=== PATIENT | male | born 1990 | race Caucasian/White ===

== ENCOUNTER 2018-04-11 01:02 | Emergency (ER) | payer BC ==
--- NOTE | 2018-04-11 01:09 | ER Report ---
History and Physical Time Seen By MD: 01:09 HPI/ROS CHIEF COMPLAINT: Depression, suicidal ideation HISTORY OF PRESENT ILLNESS: 27-year-old male brought in by police on a voluntary basis for evaluation for depression and suicidal ideation. Patient was text in earlier with friends that he was going to hang himself. He is not serious and does not have an actual plan. He denies depression. He states he is being followed by [facility] was seen there last week. Patient denies suicidal ideation at present. Patient would like to go home. He is refusing all care. REVIEW OF SYSTEMS: Respiratory: No cough, no dyspnea. Cardiovascular: No chest pain, no palpitations. Gastrointestinal: No vomiting, no abdominal pain. Musculoskeletal: No back pain. Allergies: Coded Allergies: No Known Drug Allergies (Unverified , 04/11/18) Home Meds Reported Medications Lamotrigine (LAMICTAL) 25 Mg Tablet, 25 MG PO 04/11/18 Hydroxyzine Hcl (HYDROXYZINE HCL) 25 Mg Tablet, 25 MG PO 04/11/18 Reviewed Nurses Notes: Yes Old Medical Records Reviewed: Yes Constitutional Vital Sign - Last 24 Hours 04/11/18 04/11/18 01:08 02:15 Temp 98.5 Pulse 98 100 Resp 16 B/P (MAP) 123/83 127/84 (98) Pulse Ox 93 97 O2 Delivery Room Air Room Air Physical Exam General Appearance: The patient is alert, has no immediate need for airway protection and no current signs of toxicity. Vital signs stable, afebrile, pulse ox normal Eyes: Pupils equal and round no injection. Respiratory: Chest is non tender, lungs are clear to auscultation. Cardiac: regular rate and rhythm Gastrointestinal: Abdomen is soft and non tender, no masses, bowel sounds normal. Musculoskeletal: Neck: Neck is supple and non tender. Extremities have full range of motion and are non tender. Skin: No rashes or lesions. DIFFERENTIAL DIAGNOSIS: After history and physical exam differential diagnosis was considered for depression including functional and major depression, situational depression, medication side effect, drugs and alcohol abuse. Medical Decision Making Data Points Result Diagram: 04/11/18 0137 04/11/18 0137 Laboratory Hematology Test 04/11/18 01:37 Red Blood Count 5.97 M/uL (4.00-5.60) Mean Corpuscular Volume 77.1 fL (80.0-96.0) Mean Corpuscular Hemoglobin 25.9 pg (26.0-33.0) Mean Corpuscular Hemoglobin Concent 33.6 g/dL (32.0-36.0) Red Cell Distribution Width 18.8 % (11.5-14.5) Mean Platelet Volume 8.8 fL (7.2-11.1) Neutrophils (%) (Auto) 55.3 % (39.4-72.5) Lymphocytes (%) (Auto) 33.0 % (17.6-49.6) Monocytes (%) (Auto) 9.2 % (4.1-12.4) Eosinophils (%) (Auto) 1.4 % (0.4-6.7) Basophils (%) (Auto) 1.1 % (0.3-1.4) Nucleated RBC Relative Count (auto) 0.1 /100WBC Neutrophils # (Auto) 3.1 K/uL (2.0-7.4) Lymphocytes # (Auto) 1.9 K/uL (1.3-3.6) Monocytes # (Auto) 0.5 K/uL (0.3-1.0) Eosinophils # (Auto) 0.1 K/uL (0.0-0.5) Basophils # (Auto) 0.1 K/uL (0.0-0.1) Nucleated RBC Absolute Count (auto) 0.00 K/uL Sodium Level 142 mmol/L (137-145) Potassium Level 4.0 mmol/L (3.5-5.0) Chloride Level 103 mmol/L (98-107) Carbon Dioxide Level 24 mmol/L (22-30) Blood Urea Nitrogen 9 mg/dl (9-21) Creatinine 0.70 mg/dl (0.66-1.25) Glomerular Filtration Rate Calc > 60.0 Random Glucose 104 mg/dl (75-110) Calcium Level 8.7 mg/dl (8.4-10.2) Magnesium Level 2.3 mg/dl (1.7-2.2) Total Bilirubin 0.3 mg/dl (0.2-1.3) Aspartate Amino Transf (AST/SGOT) 29 U/L (0-35) Alanine Aminotransferase (ALT/SGPT) 21 U/L (0-56) Alkaline Phosphatase 97 U/L (0-126) Total Protein 7.5 g/dl (6.3-8.2) Albumin 4.5 g/dl (3.5-5.0) Salicylates Level < 10 mg/L Salicylate Last Dose Date unk Acetaminophen Level < 10 ug/ml Serum Alcohol 80 mg/dl Chemistry Test 04/11/18 01:37 White Blood Count 5.7 k/uL (4.5-11.0) Red Blood Count 5.97 M/uL (4.00-5.60) Hemoglobin 15.4 g/dL (14.0-18.0) Hematocrit 46.0 % (42.0-52.0) Mean Corpuscular Volume 77.1 fL (80.0-96.0) Mean Corpuscular Hemoglobin 25.9 pg (26.0-33.0) Mean Corpuscular Hemoglobin Concent 33.6 g/dL (32.0-36.0) Red Cell Distribution Width 18.8 % (11.5-14.5) Platelet Count 342 K/uL (150-450) Mean Platelet Volume 8.8 fL (7.2-11.1) Neutrophils (%) (Auto) 55.3 % (39.4-72.5) Lymphocytes (%) (Auto) 33.0 % (17.6-49.6) Monocytes (%) (Auto) 9.2 % (4.1-12.4) Eosinophils (%) (Auto) 1.4 % (0.4-6.7) Basophils (%) (Auto) 1.1 % (0.3-1.4) Nucleated RBC Relative Count (auto) 0.1 /100WBC Neutrophils # (Auto) 3.1 K/uL (2.0-7.4) Lymphocytes # (Auto) 1.9 K/uL (1.3-3.6) Monocytes # (Auto) 0.5 K/uL (0.3-1.0) Eosinophils # (Auto) 0.1 K/uL (0.0-0.5) Basophils # (Auto) 0.1 K/uL (0.0-0.1) Nucleated RBC Absolute Count (auto) 0.00 K/uL Glomerular Filtration Rate Calc > 60.0 Calcium Level 8.7 mg/dl (8.4-10.2) Magnesium Level 2.3 mg/dl (1.7-2.2) Total Bilirubin 0.3 mg/dl (0.2-1.3) Aspartate Amino Transf (AST/SGOT) 29 U/L (0-35) Alanine Aminotransferase (ALT/SGPT) 21 U/L (0-56) Alkaline Phosphatase 97 U/L (0-126) Total Protein 7.5 g/dl (6.3-8.2) Albumin 4.5 g/dl (3.5-5.0) Salicylates Level < 10 mg/L Salicylate Last Dose Date unk Acetaminophen Level < 10 ug/ml Serum Alcohol 80 mg/dl Toxicology Test 04/11/18 01:37 Salicylates Level < 10 mg/L Salicylate Last Dose Date unk Acetaminophen Level < 10 ug/ml Serum Alcohol 80 mg/dl ED Course/Re-evaluation ED Course Patient was admitted to an examination room. H&P was done. The differential diagnoses was considered. On clinical examination. Patient has a benign exam. Patient on careful examination, is not actively suicidal at this time. Patient reports that the PACS messages. He was sending earlier not an actual plan. They were more of a flippant comment. I do not think patient needs to be detained at this time. He's advised to follow-up with his counselor. He was given additional resources for help. Decision to Disposition Date: Apr 11, 2018 Decision to Disposition Time: 01:33 Depart Departure Latest Vital Signs Vital Signs Date Time Temp Pulse Resp B/P (MAP) Pulse Ox O2 Delivery O2 Flow Rate FiO2 04/11/18 02:15 100 127/84 (98) 97 Room Air 04/11/18 01:08 98.5 16 Impression: Primary Impression: Depression with suicidal ideation Condition: Improved Disposition: HOME OR SELF-CARE Patient Instructions: Depression (ED) Additional Instructions: Follow-up with mental health provider you reach your new location, [place]. PABLITO HEAD DO Apr 11, 2018 01:09
[2018-04-11] MEDS ORDERED: HYDR-4225 PO (01:14)
[2018-04-11] MEDS ORDERED: LAMO25TA64 PO (01:14)
[2018-04-11 01:51] LABS: PLATELET COUNT, AUTOMATED 342 K/uL (150-450)
[2018-04-11 02:15] VITALS: BP 127/84
== END 2018-04-11 02:20 | disposition home or self-care (01) ==
LOC: ER 01:25
DX: R45.851 Suicidal ideations (principal); F32.9 Major depressive disorder, single episode, unspecified
CPT/HCPCS: 36415; 80320; 80329; 82040; 82247; 82310; 82374; 82435; 82565; 82947; 83735; 84075; 84132; 84155; 84295; 84443; 84450; 84460; 84520; 85025; 99283

== ENCOUNTER 2019-03-28 07:20 | Emergency (ER) | payer SELFPAY ==
[~2019-03-28 07:20] MED LIST: HYDR-4225 PO; LAMO25TA64 PO
--- NOTE | 2019-03-28 07:36 | ER Report ---
History and Physical Time Seen By MD: 07:28 Hx. of Stated Complaint: PATIENT IS EMERGENCY DETATINED FROM POLICE. REPORTS MAKING BAD DECISIONS AND HIS FRIENDS BECAME WORRIED ABOUT HIM HPI/ROS CHIEF COMPLAINT: Suicidal ideation with intent HISTORY OF PRESENT ILLNESS: 28-year-old male brought in by PD for suicidal ideation. Patient last evening verified via police report made statements to friends and via text that he was going to kill himself that he wanted them to buy him a gun he was going to give way as climbing equipment and thrown himself off a liliam he wanted to he was going to kill himself this is evidently happened before he was seen here about a year or so ago for the exact same situation patient says he has his job is complaining about his life and wanted to kill himself. Patient has no physical complaints at this time. When explained to him that he was going to be emergently detained he then immediately changes story saying he didn't want to kill himself he was just upset last night intoxicated and wants to go home. He was informed that he was unable to go home that he was under fpc and he became upset at this fact this and was given a financially ruined him in cost him his job. The patient then denied having suicidal ideation after he admitted to [place] stimulated want to kill himself and this was confirmed by PD. REVIEW OF SYSTEMS: Respiratory: No cough, no dyspnea. Cardiovascular: No chest pain, no palpitations. Gastrointestinal: No vomiting, no abdominal pain. Musculoskeletal: No back pain. Remainder of the 14 system rev: Yes Allergies: Coded Allergies: No Known Drug Allergies (Unverified , 04/11/18) Home Meds Reported Medications Lamotrigine (LAMICTAL) 25 Mg Tablet, 25 MG PO 04/11/18 Hydroxyzine Hcl (HYDROXYZINE HCL) 25 Mg Tablet, 25 MG PO 04/11/18 Reviewed Nurses Notes: Yes Old Medical Records Reviewed: Yes Hx Substance Use Disorder: No Hx Alcohol Use: Yes Constitutional Vital Sign - Last 24 Hours 03/28/19 07:21 Temp 98.2 Pulse 86 Resp 16 B/P (MAP) 107/81 Pulse Ox 94 O2 Delivery Room Air Physical Exam General Appearance: The patient is alert, has no immediate need for airway protection and no current signs of toxicity. [ ] Eyes: Pupils equal and round no injection. Respiratory: Chest is non tender, lungs are clear to auscultation. Cardiac: regular rate and rhythm [ ] Gastrointestinal: Abdomen is soft and non tender, no masses, bowel sounds normal. Musculoskeletal: Neck: Neck is supple and non tender. Extremities have full range of motion and are non tender. Skin: No rashes or lesions. [ Behavioral examination patient has a somewhat flattened affect. Declarative statements of suicidal ideation with plan then recanted] DIFFERENTIAL DIAGNOSIS: After history and physical exam differential diagnosis was considered for suicidal ideation with plan and intent depressive depressive disorder Medical Decision Making Data Points Result Diagram: 03/28/19 0733 03/28/19 0733 Laboratory Hematology Test 03/28/19 07:33 03/28/19 07:39 Red Blood Count 5.76 M/uL (4.00-5.60) Mean Corpuscular Volume 91.2 fL (80.0-96.0) Mean Corpuscular Hemoglobin 31.2 pg (26.0-33.0) Mean Corpuscular Hemoglobin Concent 34.3 g/dL (32.0-36.0) Red Cell Distribution Width 15.3 % (11.5-14.5) Mean Platelet Volume 8.0 fL (7.2-11.1) Neutrophils (%) (Auto) 49.8 % (39.4-72.5) Lymphocytes (%) (Auto) 38.5 % (17.6-49.6) Monocytes (%) (Auto) 9.6 % (4.1-12.4) Eosinophils (%) (Auto) 1.5 % (0.4-6.7) Basophils (%) (Auto) 0.6 % (0.3-1.4) Nucleated RBC Relative Count (auto) 0.0 /100WBC Neutrophils # (Auto) 2.5 K/uL (2.0-7.4) Lymphocytes # (Auto) 1.9 K/uL (1.3-3.6) Monocytes # (Auto) 0.5 K/uL (0.3-1.0) Eosinophils # (Auto) 0.1 K/uL (0.0-0.5) Basophils # (Auto) 0.0 K/uL (0.0-0.1) Nucleated RBC Absolute Count (auto) 0.00 K/uL Sodium Level 146 mmol/L (137-145) Potassium Level 3.9 mmol/L (3.5-5.0) Chloride Level 104 mmol/L (98-107) Carbon Dioxide Level 27 mmol/L (22-30) Blood Urea Nitrogen 6 mg/dl (9-21) Creatinine 0.70 mg/dl (0.66-1.25) Glomerular Filtration Rate Calc > 60.0 Random Glucose 90 mg/dl (75-110) Calcium Level 9.2 mg/dl (8.4-10.2) Magnesium Level 2.6 mg/dl (1.7-2.2) Total Bilirubin 0.4 mg/dl (0.2-1.3) Aspartate Amino Transf (AST/SGOT) 43 U/L (0-35) Alanine Aminotransferase (ALT/SGPT) 42 U/L (0-56) Alkaline Phosphatase 94 U/L (0-126) Total Protein 7.8 g/dl (6.3-8.2) Albumin 4.6 g/dl (3.5-5.0) Salicylates Level < 10 mg/L Salicylate Last Dose Date unk Acetaminophen Level < 10 ug/ml Serum Alcohol 170 mg/dl Urine Color Yellow Urine Clarity Clear Urine pH 5.0 pH (4.8-9.5) Urine Specific [place] 1.023 Urine Protein Negative mg/dL (NEGATIVE) Urine Glucose (UA) Negative mg/dL (NEGATIVE) Urine Ketones Trace mg/dL (NEGATIVE) Urine Blood Negative (NEGATIVE) Urine Nitrite Negative (NEGATIVE) Urine Bilirubin Negative (NEGATIVE) Urine Urobilinogen Negative mg/dL (0.2-1.9) Urine Leukocyte Esterase Negative (NEGATIVE) Urine RBC <1 /HPF (0-2/HPF) Urine WBC 1 /HPF (0-5/HPF) Urine Squamous Epithelial Cells None /LPF (</=FEW) Urine Bacteria Negative /HPF (NONE-FEW) Urine Mucus Few /HPF (NONE-FEW) Urine Opiates Screen Negative Urine Barbiturates Screen Negative Ur Tricyclic Antidepressants Screen Negative Urine Phencyclidine Screen Negative Urine Amphetamines Screen Negative Urine Benzodiazepines Screen Positive Urine Cocaine Screen Negative Urine Cannabinoids Screen Negative Chemistry Test 03/28/19 07:33 03/28/19 07:39 White Blood Count 4.9 k/uL (4.5-11.0) Red Blood Count 5.76 M/uL (4.00-5.60) Hemoglobin 18.0 g/dL (14.0-18.0) Hematocrit 52.5 % (42.0-52.0) Mean Corpuscular Volume 91.2 fL (80.0-96.0) Mean Corpuscular Hemoglobin 31.2 pg (26.0-33.0) Mean Corpuscular Hemoglobin Concent 34.3 g/dL (32.0-36.0) Red Cell Distribution Width 15.3 % (11.5-14.5) Platelet Count 336 K/uL (150-450) Mean Platelet Volume 8.0 fL (7.2-11.1) Neutrophils (%) (Auto) 49.8 % (39.4-72.5) Lymphocytes (%) (Auto) 38.5 % (17.6-49.6) Monocytes (%) (Auto) 9.6 % (4.1-12.4) Eosinophils (%) (Auto) 1.5 % (0.4-6.7) Basophils (%) (Auto) 0.6 % (0.3-1.4) Nucleated RBC Relative Count (auto) 0.0 /100WBC Neutrophils # (Auto) 2.5 K/uL (2.0-7.4) Lymphocytes # (Auto) 1.9 K/uL (1.3-3.6) Monocytes # (Auto) 0.5 K/uL (0.3-1.0) Eosinophils # (Auto) 0.1 K/uL (0.0-0.5) Basophils # (Auto) 0.0 K/uL (0.0-0.1) Nucleated RBC Absolute Count (auto) 0.00 K/uL Glomerular Filtration Rate Calc > 60.0 Calcium Level 9.2 mg/dl (8.4-10.2) Magnesium Level 2.6 mg/dl (1.7-2.2) Total Bilirubin 0.4 mg/dl (0.2-1.3) Aspartate Amino Transf (AST/SGOT) 43 U/L (0-35) Alanine Aminotransferase (ALT/SGPT) 42 U/L (0-56) Alkaline Phosphatase 94 U/L (0-126) Total Protein 7.8 g/dl (6.3-8.2) Albumin 4.6 g/dl (3.5-5.0) Salicylates Level < 10 mg/L Salicylate Last Dose Date unk Acetaminophen Level < 10 ug/ml Serum Alcohol 170 mg/dl Urine Color Yellow Urine Clarity Clear Urine pH 5.0 pH (4.8-9.5) Urine Specific [place] 1.023 Urine Protein Negative mg/dL (NEGATIVE) Urine Glucose (UA) Negative mg/dL (NEGATIVE) Urine Ketones Trace mg/dL (NEGATIVE) Urine Blood Negative (NEGATIVE) Urine Nitrite Negative (NEGATIVE) Urine Bilirubin Negative (NEGATIVE) Urine Urobilinogen Negative mg/dL (0.2-1.9) Urine Leukocyte Esterase Negative (NEGATIVE) Urine RBC <1 /HPF (0-2/HPF) Urine WBC 1 /HPF (0-5/HPF) Urine Squamous Epithelial Cells None /LPF (</=FEW) Urine Bacteria Negative /HPF (NONE-FEW) Urine Mucus Few /HPF (NONE-FEW) Urine Opiates Screen Negative Urine Barbiturates Screen Negative Ur Tricyclic Antidepressants Screen Negative Urine Phencyclidine Screen Negative Urine Amphetamines Screen Negative Urine Benzodiazepines Screen Positive Urine Cocaine Screen Negative Urine Cannabinoids Screen Negative Toxicology Test 03/28/19 07:33 03/28/19 07:39 Salicylates Level < 10 mg/L Salicylate Last Dose Date unk Acetaminophen Level < 10 ug/ml Serum Alcohol 170 mg/dl Urine Opiates Screen Negative Urine Barbiturates Screen Negative Ur Tricyclic Antidepressants Screen Negative Urine Phencyclidine Screen Negative Urine Amphetamines Screen Negative Urine Benzodiazepines Screen Positive Urine Cocaine Screen Negative Urine Cannabinoids Screen Negative Urinalysis Test 03/28/19 07:39 Urine Color Yellow Urine Clarity Clear Urine pH 5.0 pH (4.8-9.5) Urine Specific [place] 1.023 Urine Protein Negative mg/dL (NEGATIVE) Urine Glucose (UA) Negative mg/dL (NEGATIVE) Urine Ketones Trace mg/dL (NEGATIVE) Urine Blood Negative (NEGATIVE) Urine Nitrite Negative (NEGATIVE) Urine Bilirubin Negative (NEGATIVE) Urine Urobilinogen Negative mg/dL (0.2-1.9) Urine Leukocyte Esterase Negative (NEGATIVE) Urine RBC <1 /HPF (0-2/HPF) Urine WBC 1 /HPF (0-5/HPF) Urine Squamous Epithelial Cells None /LPF (</=FEW) Urine Bacteria Negative /HPF (NONE-FEW) Urine Mucus Few /HPF (NONE-FEW) ED Course/Re-evaluation ED Course Medical decision-making a 28 year old male made suicidal comments and plan and intent to friends and family this was identified by PD brought him here for emergency fpc which she was detained entitled potentially some pelvic emergency department patient will be sent to the behavioral health unit Decision to Disposition Date: Mar 28, 2019 Decision to Disposition Time: 08:25 Depart Departure Latest Vital Signs Vital Signs Date Time Temp Pulse Resp B/P (MAP) Pulse Ox O2 Delivery O2 Flow Rate FiO2 03/28/19 07:21 98.2 86 16 107/81 94 Room Air Impression: Primary Impression: Depression with suicidal ideation Condition: Stable Disposition: XFER TO [facility] ER - Title 25 MHE Evaluation Title 25 Evaluation Patient Detained By: Physician, Law Enforcement Referral Source: police Date Patient Detained: Mar 28, 2019 Time Patient Detained: 07:31 Date Mcc Expires: Mar 30, 2019 Time Mcc Expires: 07:31 Legal Status: Police Hold: Yes Legal Status: Residence: [facility] Resident Assessment Data Provided By: Patient, Law Enforcement HPI/ROS: 28-year-old male brought here by PD for emergency fpc for suicidal ideation with plan and intent reportedly sent text messages think medications to friends that he was going to kill himself [place] by recurrence week she himself 1 to give away his climbing gears (himself off a liliam and wanted to end his life Admit due to SI or Attempt: Yes Suicide Plan: No Plan Current Suicide Plan Suicidal plan either through firearm or through dry himself off a elevated liliam Alcohol or Drugs Involved: Yes Current Intoxication Info: Claims he drank last evening Is Patient Info Reliable: Yes Is Collateral Info Reliable: Yes Current Home Psych Meds: None Mental Status Exam General Appearance: Casual Speech: Clear Mood: Dysthmic/Depressed Affect: Full and Appropriate, Flat Thought Process: Loose Associations Thought Content: Suicidal Ideation Sensorium: Clear Cognition: Alert & Oriented-Person, Alert & Oriented-Place, Alert & Oriented- Time, [id number] Memory: Immediate Insight Judgment: Intact, Poor Sleep: Normal Hallucinations: Denies Delusions: Denies Current Risk & History Current Dangerous Risk Assessm: Current Suicide Ideation, Agitation this Encounter Past Dangerous Risk Assessm: Other Previous Suicide Attempt: No Previous Attempt Previous Psychiatric Illness: Yes Previous Psychiatric Treatment: Yes Risk Assessment & Disposition Evaluated Risk Assessment: High Impression: Primary Impression: Depression with suicidal ideation Meets Mental Illness Req.: Yes Meets Dangerousness Req.: Yes Emergency Mcc to be: Upheld Date of Decision: Mar 28, 2019 Time of Decision: 07:34 Patient is Medically Stable at: Yes Disposition: ZARA TAFOYA MD Mar 28, 2019 07:36
[2019-03-28 07:46] LABS: PLATELET COUNT, AUTOMATED 336 K/uL (150-450)
[2019-03-28 08:42] VITALS: BP 108/82
[2019-03-28] MEDS ORDERED: LAMO150T36 PO (12:08)
[2019-03-29] MEDS ORDERED: TRAZ150T8 PO (11:22)
[2019-03-29] MEDS ORDERED: MULT-1379 PO (11:24)
== END 2019-03-28 08:45 ==
LOC: ER 07:22
DX: F32.9 Major depressive disorder, single episode, unspecified (principal); R45.851 Suicidal ideations
CPT/HCPCS: 36415; 80305; 80320; 80329; 81001; 82040; 82247; 82310; 82374; 82435; 82565; 82947; 83735; 84075; 84132; 84155; 84295; 84443; 84450; 84460; 84520; 85025; 99284

== ENCOUNTER 2019-03-28 08:36 | Inpatient (IN) | payer SELFPAY ==
[~2019-03-28] VITALS: Ht 170.2 cm; Wt 61.2 kg
[2019-03-28 08:50] VITALS: BP 118/83
[2019-03-28] MEDS: MULTIVITAMINS TAB PO SCH (09:00)
[2019-03-28] MEDS ORDERED: MAG HYD/AL HYD/SIMETH 30ML UDC PO PRN (09:00)
[2019-03-28] MEDS: lamoTRIgine 100 MG TAB PO SCH (11:45)
[2019-03-28] MEDS ORDERED: LAMO150T36 PO (12:08)
[2019-03-28] MEDS ORDERED: traZODone HCL 50 MG TAB PO SCH (21:00)
[2019-03-28 21:49] VITALS: BP 112/64
[2019-03-29 06:03] VITALS: BP 104/65
[2019-03-29] MEDS: lamoTRIgine 100 MG TAB PO SCH (08:10)
[2019-03-29] MEDS: MULTIVITAMINS TAB PO SCH (08:10)
[2019-03-29] MEDS ORDERED: TRAZ150T8 PO (11:22)
[2019-03-29] MEDS ORDERED: MULT-1379 PO (11:24)
--- NOTE | 2019-03-29 15:01 | SCHAAF H&P ---
DATE OF ADMISSION: March 28, 2019 ATTENDING PHYSICIAN Pedro Escoto MD Patient was seen in the a.m. of March 28, 2019, at approximately 1000 hours for note concerning this dictation. PRESENTING PROBLEM/CHIEF COMPLAINT Patient emergency detained after voicing suicidal ideation. Patient reporting, "I drank too much last night," upon interview at the [facility]al [facility]. HISTORY OF PRESENT ILLNESS This is a very pleasant 28-year-old male who overall appears to be an accurate historian. Patient states he drinks alcohol most days of the week, usually around three beers a night. Patient reported drinking up to 10 beers prior to admission. Patient reports he has been stressed out about his future and problems in social situations with friends recently. Patient does report he has some good people that he works with. Patient reports some social anxiety and over thinking in social situations, likely having some avoidant-type personality traits. When asked about depressive symptoms, patient reports his appetite has been okay. His energy is variable. Concentration is okay. He continues to have interest in outdoor activities. His sleep is variable at times, and his mood currently has improved to a 4/10 with 1 being bad. Patient is adamantly denying suicidal thoughts. Patient reports some cyclic-type mood in the past, and he reports that Lamictal, he believes, is helpful. Notably, this was prescribed at [facility] where patient has been following up for some time. Patient also given low-dose Valium as well. Patient does not appear to be abusing it. Patient has had no history of psychosis. Panic attacks sometimes out of the blue, and these need further evaluation before panic disorder can be diagnosed. Patient has no PTSD symptoms, phobias. No OCD symptoms. Patient has been cutting on himself. He reports this started around age 24 or 25 and recently has engaged in some very light superficial cutting of extremities. He reports this is stress relief. MENTAL HEALTH HISTORY Patient has never been an inpatient in a [facility]. Again, he has been following [facility] at [facility]. Patient reports he would be open to having a therapist as well. Patient currently on Lamictal at 100 mg q.a.m. In the past, he has been on higher doses and felt like this was helpful. Patient reported one history in his past where he thought about suicide strongly and had bought a firearm. He did not seek any inpatient treatment at that time. FAMILY PSYCHIATRIC HISTORY Patient reports some drinking. Grandfather believed to be on the dad's side suffered from alcoholism, and he had a cousin who took his life. PAST MEDICAL HISTORY Patient reports some mild asthma symptoms at times in his life and mostly outgrown. Other than that, patient reports overall good health with no known drug allergies. SOCIAL HISTORY Patient born in [place], raised there. Parents were at time of his . They remain together. Patient had two brothers. He is a high school graduate. Obtained a bachelor of science degree in [employer]. Patient has never been in the . Not . Has no children. Not engaged in a relationship with a significant other at this point, but states he would like to and considers himself heterosexual. 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 He would eventually like to get into more of a [employer] employment. LEGAL HISTORY Patient has DUI times one. SUBSTANCE ABUSE HISTORY Chews tobacco occasionally. Alcohol appears to be a moderate problem in his life. PHYSICAL EXAMINATION Please see emergency room note. Notable for: GENERAL: A 28-year-old male, cooperative with admission process. VITAL SIGNS: At time of admission, temperature 98.2, pulse 86, respiratory rate 16, blood pressure 107/81, and pulse oximetry 94% on room air. LABORATORY DATA CBC overall unremarkable. Chemistry panel notable for AST with slight elevation at 43. Magnesium slightly elevated at 2.6. TSH 1.97, in normal range. Urinalysis unremarkable. Toxicology screen positive for benzodiazepines. Patient is prescribed Valium low dose and serum alcohol level 170 at time of admission. MENTAL STATUS EXAMINATION GENERAL APPEARANCE, BEHAVIOR, AND ATTITUDE: This is a tearful, but pleasant 28-year-old male at time of admission. Patient appears to be overall an accurate historian. Patient tearful when talking about childhood events, which he does not want to discuss, which he reports have somewhat alienated him from his family. SPEECH: Largely within normal limits. Regular rate, rhythm, volume, and tone. MOOD: Improving. AFFECT: Constricted at times and mood congruent overall. THOUGHT PROCESSES: Appeared goal-directed, logical, patient thinking and making plans about his future. No loose associations or flight of ideas. THOUGHT CONTENT: Free of auditory or visual hallucinations, ideas of reference, thought broadcasting, delusions, obsessions, compulsions. Patient stating he would not take his own life. Denying homicidal ideation. SENSORIUM: Clear. COGNITION: Alert and oriented to person, place, time, and situation. MEMORY: Immediate, recent, and remote estimated intact. INTELLIGENCE: Average based on interview. INSIGHT AND JUDGMENT: Considered limited at time of admission. Patient having ongoing stressors combined with alcohol and benzodiazepine use. ASSESSMENT This is a very pleasant and honest-appearing 28-year-old male, likely has some underlying anxiety component and likely an element of substance-induced anxiety and depression. Patient is being treated for what appears to be potentially a cyclothymic condition with Lamictal, which he said had been helpful in the past. Patient likely having some cluster C as well as mild cluster B traits regarding his personality style. Will continue to engage patient in therapy and will monitor if any alcohol withdrawal is present and will work this patient up in an outpatient setting upon discharge. DIAGNOSES 1. Alcohol intoxication. 2. Alcohol use disorder, moderate. 3. Substance-induced anxiety and depression. 4. Rule out cyclothymia. 5. Cluster C and mild cluster B traits. PLAN 1. Admit to the unit. 2. Necessary precautions will be implemented. 3. Patient will participate in individual and group therapy. 4. Medications will be administered and titrated accordingly. 5. Collateral information to be obtained as necessary. 6. Estimated length of stay two to three days. MTDD
--- NOTE | 2019-04-01 13:12 | SCHAAF DISCHARGE ---
DATE OF ADMISSION: March 28, 2019 DATE OF DISCHARGE: March 29, 2019 ATTENDING PHYSICIAN Pedro Esctoo MD The patient was seen on the a.m. of March 29, 2019 at approximately 0840 hours for note concerning this dictation. FINAL DIAGNOSES 1. Alcohol use disorder, [id number]. 2. Anxiety disorder, unspecified, rule out cyclothymia. 3. Cluster C traits. 4. Substance, particularly alcohol induced mood disorder. REASON FOR ADMISSION This is a very polite 28-year-old male who presented as a very honest and accurate historian overall. The patient appeared to be suffering mostly from decompensating mood in the presence of excessive alcohol use. The patient identifying some social stressors as well. Please see H and P for full details. The patient again interacted appropriately throughout his stay on the unit. Alcohol withdrawal was not clinically relevant. The patient worked closely with therapist to insure an early discharge and get back to work. The patient demonstrating no parasuicidal behaviors on the unit. Appetite and sleep appeared good. Lamictal was increased to 150 mg which patient had said been helpful in the past. The patient was warned not to use Valium previously prescribed by outpatient provider. The patient indicated a desire to stop alcohol use. The patient also responded to trazodone low dose and was given a script of 50 to 150 mg p.o. q. nightly at time of discharge. PHYSICAL EXAMINATION Please see emergency room note. Notable for cooperative 28-year-old male at the time of admission. The patient had been placed under an emergency detainment from police after his friends were worried about him and contacted them. Vital signs at the time of admission: Temperature 98.2, pulse 86, respiratory rate 16, blood pressure 107/81 and pulse oximetry 94% on room air. Vital signs at the time of discharge from [facility]: Temperature 98.1, pulse 61, respiratory rate 15, blood pressure 104/65 and pulse oximetry 96% on room air. LABORATORY DATA CBC on admission overall unremarkable. Chemistry panel notable for mild elevation in AST of 43, otherwise unremarkable. TSH 1.97 normal range. Urinalysis unremarkable and toxicology screen positive for benzodiazepines. The patient stated he was prescribed low-dose Valium by outpatient provider and negative for other drugs of abuse. Serum alcohol 170 upon admission. MENTAL STATUS EXAMINATION GENERAL APPEARANCE, BEHAVIOR AND ATTITUDE: This is a very pleasant 28-year-old male. Well-groomed, making good eye contact. Interacting appropriately with this provider and other treatment team staff. The patient seemingly a very accurate and honest historian. Agreed to follow up treatment. The patient agreed to take medications as prescribed and abstain from alcohol. No bizarre mannerisms or tics. SPEECH: Within normal limits. Regular rate, rhythm, volume and tone. MOOD: Described as good. AFFECT: Full and bright. THOUGHT PROCESSES: Logical and goal-directed, no loose associations or flight of ideas. THOUGHT CONTENT: Free of auditory or visual hallucinations, ideas of reference, thought broadcastings, delusions, obsessions or compulsions. The patient is adamantly denying suicidal or homicidal ideation and insured that he would contact hospital or this provider if any symptoms return. SENSORIUM: Clear. COGNITION: Alert and oriented to person, place, time and situation. MEMORY: Immediate, recent and remote was estimated intact. INTELLIGENCE: Average, based on interview. INSIGHT AND JUDGMENT: Considered grossly intact and appropriate for outpatient care in the absence of alcohol or other drug use. RESULTS OF TESTING Imaging: None. Laboratory data: See above. Psychological testing: Not done. CONSULTATIONS None. TREATMENT Patient received medications, participated in individual and group therapy. HOSPITAL COURSE The patient indicated a desire to discharge the unit as soon as possible stating that his symptoms of suicidal ideation had resolved and patient wanted to get back to work. The patient had long-term goals, participated well in discussions with this provider and therapist. Lamictal was increased to 150 mg q. a.m. for potential underlying mood disorder and alcohol withdrawal again was considered not clinically relevant. CONDITION OF PATIENT ON DISCHARGE Stable. Considered a minimal risk to himself or others in the absence of alcohol or drug use. DISPOSITION The patient was discharged to home. He would follow up as scheduled with medication management and particularly with therapist. The patient was given a script for Lamictal 150 mg p.o. q. a.m., trazodone 50 to 150 mg p.o. q. nightly p.r.n. insomnia. The patient agreed to disposing of Valium given by outpatient provider and patient agreed to abstain from all alcohol and other illicit substances. The Crisis Line was given should symptoms return. The risks, benefits and alternatives of the above discharge plan were discussed. Informed consent was given to proceed with the above discharge plan by this competent patient. BOGDAN
== END 2019-03-29 12:30 | disposition home or self-care (01) | DRG 897 ==
LOC: BHS 08:36
PROVIDERS: ADMIT Psychiatry & Neurology Psychiatry; ATTEND Psychiatry & Neurology Psychiatry
DX: F10.24 Alcohol dependence with alcohol-induced mood disorder (principal); R45.851 Suicidal ideations; F41.9 Anxiety disorder, unspecified; F34.0 Cyclothymic disorder; Z91.5 Personal history of self-harm; Z81.1 Family history of alcohol abuse and dependence; Z81.8 Family history of other mental and behavioral disorders

== ENCOUNTER 2019-04-01 01:44 | Observation (INO) | payer OTHER ==
[~2019-04-01] VITALS: Ht 172.7 cm; Wt 67.8 kg
[2019-04-01] VITALS (30 sets, daily range): BP systolic 88–119; BP diastolic 45–80
[~2019-04-01 01:44] MED LIST changes: +LAMO150T36 PO; +MULT-1379 PO; +TRAZ150T8 PO
[2019-04-01] MEDS ORDERED: NS(*) 0.9% 1000 ML BAG 1,000 ML IV ONE ×6 (01:49→05:10)
[2019-04-01 01:59] LABS: PLATELET COUNT, AUTOMATED 319 K/uL (150-450)
--- NOTE | 2019-04-01 01:59 | ER Report ---
History and Physical Time Seen By MD: 01:47 HPI/ROS CHIEF COMPLAINT: Overdose, alcohol intoxication HISTORY OF PRESENT ILLNESS: 28-year-old male brought in by EMS after being encountered by police. Patient appears grossly intoxicated. He admits to taking several pills. He has access to Valium 5 mg, lamotrigine, trazodone, hydrocodone. Patient had a smorgasbord of pills spread out on the counter. His unclear what he's taken. He is hypotensive on arrival. EMS established a peripheral IV. Patient responds to painful stimuli. He wakes up and answers questions appropriately with stimulation. He is quite somnolent. Patient's history is significant for recent emergency fpc and admission to [facility] on 03/28/19. He was discharged on March 29 from [facility]. REVIEW OF SYSTEMS: Respiratory: No cough, no dyspnea. Cardiovascular: No chest pain, no palpitations. Gastrointestinal: No vomiting, no abdominal pain. Musculoskeletal: No back pain. Allergies: Coded Allergies: No Known Drug Allergies (Unverified , 04/11/18) Home Meds Reported Medications Trazodone Hcl (TRAZODONE HCL) 150 Mg Tablet, 50-150 MG PO QHS PRN for INSOMNIA 04/01/19 Multivits,Th W-Fe,Other Min (THERA-M) 1 Each Tablet, 1 EACH PO QDAY 03/29/19 Lamotrigine (LAMOTRIGINE) 150 Mg Tablet, 150 MG PO QAM 03/28/19 Discontinued Reported Medications Trazodone Hcl (TRAZODONE HCL) 150 Mg Tablet, 50-150 MG PO QHS TAKE 50 - 150 MG (1/3 TO ONE) TABLET NEEDED FOR INSOMNIA ABOUT AN HOUR BEFORE YOU GO TO SLEEP. 03/29/19 Lamotrigine (LAMICTAL) 25 Mg Tablet, 25 MG PO 04/11/18 Past Medical/Surgical History Depression with a history of suicidal ideation Hx Smoking: No Smoking Status: Never Smoker Exposure to Second Hand Smoke?: No Hx Substance Use Disorder: No Hx Alcohol Use: Yes Constitutional Vital Sign - Last 24 Hours 04/01/19 04/01/19 04/01/19 04/01/19 01:44 01:46 01:55 02:00 Temp 98.7 Pulse ??? 59 Resp 20 B/P (MAP) 83/50 (61) 83/57 87/55 (66) Pulse Ox 90 O2 Delivery Room Air 04/01/19 04/01/19 04/01/19 04/01/19 02:04 02:10 02:20 02:30 B/P (MAP) 88/58 (68) 94/58 (70) 89/61 (70) 90/60 (70) 04/01/19 04/01/19 04/01/19 04/01/19 02:40 02:44 02:50 03:00 Pulse 82 64 Resp 12 12 B/P (MAP) 87/58 (68) 90/58 (69) 89/62 (71) Pulse Ox 92 93 04/01/19 04/01/19 04/01/19 04/01/19 03:05 03:10 03:20 03:30 Pulse 66 Resp 16 B/P (MAP) 81/51 (61) 91/76 (81) 87/59 (68) Pulse Ox 93 04/01/19 04/01/19 04/01/19 04/01/19 03:35 03:40 03:50 03:55 Pulse 65 66 Resp 22 12 B/P (MAP) 96/67 (77) 96/63 (74) Pulse Ox 93 92 04/01/19 04/01/19 04/01/19 04/01/19 04:00 04:06 04:10 04:15 Pulse 65 Resp 12 B/P (MAP) 86/56 (66) 98/62 (74) 93/60 (71) Pulse Ox 92 04/01/19 04/01/19 04/01/19 04/01/19 04:20 04:25 04:30 04:40 Pulse 61 65 ??? Resp 9 14 11 B/P (MAP) 87/52 (64) 85/52 (63) 74/49 (57) Pulse Ox 92 89 89 04/01/19 04/01/19 04/01/19 04/01/19 04:44 04:45 04:50 04:55 Pulse 80 61 70 Resp 12 15 12 B/P (MAP) 84/41 (55) 78/37 (51) 81/36 (51) Pulse Ox 89 98 89 04/01/19 04/01/19 04/01/19 04/01/19 05:00 05:05 05:10 05:15 Pulse 64 69 61 69 Resp 9 22 18 11 B/P (MAP) 88/42 (57) 84/56 (65) 84/49 (61) 90/48 (62) Pulse Ox 93 92 91 94 04/01/19 05:20 Pulse 67 Resp 18 B/P (MAP) 101/50 (67) Pulse Ox 95 Physical Exam Hypotension, bradycardic at 53 bpm. Pulse ox and respiratory rate are normal. General Appearance: The patient is alert, has no immediate need for airway protection and no current signs of toxicity. Slightly pale appearing, but weren't oriented 3, somnolent HEENT: Pupils equal and round no injection. TMs normal, oropharynx without dental trauma or pill fragments Respiratory: Chest is non tender, lungs are clear to auscultation. Cardiac: regular rate and rhythm Gastrointestinal: Abdomen is soft and non tender, no masses, bowel sounds normal. Musculoskeletal: Neck: Neck is supple and non tender. Extremities have full range of motion and are non tender. Skin: No rashes or lesions. DIFFERENTIAL DIAGNOSIS: After history and physical exam differential diagnosis was considered for depression including functional and major depression, situational depression, medication side effect, suicidal attempt, polypharmacy overdose, suicidal gesture drugs and alcohol abuse. Medical Decision Making Data Points Result Diagram: 04/01/19 0142 04/01/19 1227 Laboratory Hematology Test 04/01/19 01:42 04/01/19 03:16 Red Blood Count 5.45 M/uL (4.00-5.60) Mean Corpuscular Volume 92.4 fL (80.0-96.0) Mean Corpuscular Hemoglobin 31.8 pg (26.0-33.0) Mean Corpuscular Hemoglobin Concent 34.4 g/dL (32.0-36.0) Red Cell Distribution Width 15.2 % (11.5-14.5) Mean Platelet Volume 8.5 fL (7.2-11.1) Neutrophils (%) (Auto) 50.1 % (39.4-72.5) Lymphocytes (%) (Auto) 37.6 % (17.6-49.6) Monocytes (%) (Auto) 9.4 % (4.1-12.4) Eosinophils (%) (Auto) 1.4 % (0.4-6.7) Basophils (%) (Auto) 1.5 % (0.3-1.4) Nucleated RBC Relative Count (auto) 0.2 /100WBC Neutrophils # (Auto) 2.5 K/uL (2.0-7.4) Lymphocytes # (Auto) 1.9 K/uL (1.3-3.6) Monocytes # (Auto) 0.5 K/uL (0.3-1.0) Eosinophils # (Auto) 0.1 K/uL (0.0-0.5) Basophils # (Auto) 0.1 K/uL (0.0-0.1) Nucleated RBC Absolute Count (auto) 0.01 K/uL Magnesium Level 2.6 mg/dl (1.7-2.2) Thyroid Stimulating Hormone (TSH) 1.02 uIU/ml (0.46-4.68) Salicylates Level < 10 mg/L Salicylate Last Dose Date unk Serum Alcohol 221 mg/dl Urine Color Yellow Urine Clarity Clear Urine pH 6.0 pH (4.8-9.5) Urine Specific [place] 1.008 Urine Protein Negative mg/dL (NEGATIVE) Urine Glucose (UA) Negative mg/dL (NEGATIVE) Urine Ketones Negative mg/dL (NEGATIVE) Urine Blood Negative (NEGATIVE) Urine Nitrite Negative (NEGATIVE) Urine Bilirubin Negative (NEGATIVE) Urine Urobilinogen Negative mg/dL (0.2-1.9) Urine Leukocyte Esterase Negative (NEGATIVE) Urine RBC <1 /HPF (0-2/HPF) Urine WBC 1 /HPF (0-5/HPF) Urine Squamous Epithelial Cells Few /LPF (</=FEW) Urine Bacteria Negative /HPF (NONE-FEW) Urine Hyaline Casts Few /LPF (NONE-FEW) Urine Mucus Few /HPF (NONE-FEW) Urine Opiates Screen Negative Urine Barbiturates Screen Negative Ur Tricyclic Antidepressants Screen Negative Urine Phencyclidine Screen Negative Urine Amphetamines Screen Positive Urine Benzodiazepines Screen Positive Urine Cocaine Screen Negative Urine Cannabinoids Screen Negative Chemistry Test 04/01/19 01:42 04/01/19 03:16 White Blood Count 5.1 k/uL (4.5-11.0) Red Blood Count 5.45 M/uL (4.00-5.60) Hemoglobin 17.3 g/dL (14.0-18.0) Hematocrit 50.3 % (42.0-52.0) Mean Corpuscular Volume 92.4 fL (80.0-96.0) Mean Corpuscular Hemoglobin 31.8 pg (26.0-33.0) Mean Corpuscular Hemoglobin Concent 34.4 g/dL (32.0-36.0) Red Cell Distribution Width 15.2 % (11.5-14.5) Platelet Count 319 K/uL (150-450) Mean Platelet Volume 8.5 fL (7.2-11.1) Neutrophils (%) (Auto) 50.1 % (39.4-72.5) Lymphocytes (%) (Auto) 37.6 % (17.6-49.6) Monocytes (%) (Auto) 9.4 % (4.1-12.4) Eosinophils (%) (Auto) 1.4 % (0.4-6.7) Basophils (%) (Auto) 1.5 % (0.3-1.4) Nucleated RBC Relative Count (auto) 0.2 /100WBC Neutrophils # (Auto) 2.5 K/uL (2.0-7.4) Lymphocytes # (Auto) 1.9 K/uL (1.3-3.6) Monocytes # (Auto) 0.5 K/uL (0.3-1.0) Eosinophils # (Auto) 0.1 K/uL (0.0-0.5) Basophils # (Auto) 0.1 K/uL (0.0-0.1) Nucleated RBC Absolute Count (auto) 0.01 K/uL Magnesium Level 2.6 mg/dl (1.7-2.2) Thyroid Stimulating Hormone (TSH) 1.02 uIU/ml (0.46-4.68) Salicylates Level < 10 mg/L Salicylate Last Dose Date unk Serum Alcohol 221 mg/dl Urine Color Yellow Urine Clarity Clear Urine pH 6.0 pH (4.8-9.5) Urine Specific [place] 1.008 Urine Protein Negative mg/dL (NEGATIVE) Urine Glucose (UA) Negative mg/dL (NEGATIVE) Urine Ketones Negative mg/dL (NEGATIVE) Urine Blood Negative (NEGATIVE) Urine Nitrite Negative (NEGATIVE) Urine Bilirubin Negative (NEGATIVE) Urine Urobilinogen Negative mg/dL (0.2-1.9) Urine Leukocyte Esterase Negative (NEGATIVE) Urine RBC <1 /HPF (0-2/HPF) Urine WBC 1 /HPF (0-5/HPF) Urine Squamous Epithelial Cells Few /LPF (</=FEW) Urine Bacteria Negative /HPF (NONE-FEW) Urine Hyaline Casts Few /LPF (NONE-FEW) Urine Mucus Few /HPF (NONE-FEW) Urine Opiates Screen Negative Urine Barbiturates Screen Negative Ur Tricyclic Antidepressants Screen Negative Urine Phencyclidine Screen Negative Urine Amphetamines Screen Positive Urine Benzodiazepines Screen Positive Urine Cocaine Screen Negative Urine Cannabinoids Screen Negative Toxicology Test 04/01/19 01:42 04/01/19 03:16 Salicylates Level < 10 mg/L Salicylate Last Dose Date unk Serum Alcohol 221 mg/dl Urine Opiates Screen Negative Urine Barbiturates Screen Negative Ur Tricyclic Antidepressants Screen Negative Urine Phencyclidine Screen Negative Urine Amphetamines Screen Positive Urine Benzodiazepines Screen Positive Urine Cocaine Screen Negative Urine Cannabinoids Screen Negative Urinalysis Test 04/01/19 03:16 Urine Color Yellow Urine Clarity Clear Urine pH 6.0 pH (4.8-9.5) Urine Specific [place] 1.008 Urine Protein Negative mg/dL (NEGATIVE) Urine Glucose (UA) Negative mg/dL (NEGATIVE) Urine Ketones Negative mg/dL (NEGATIVE) Urine Blood Negative (NEGATIVE) Urine Nitrite Negative (NEGATIVE) Urine Bilirubin Negative (NEGATIVE) Urine Urobilinogen Negative mg/dL (0.2-1.9) Urine Leukocyte Esterase Negative (NEGATIVE) Urine RBC <1 /HPF (0-2/HPF) Urine WBC 1 /HPF (0-5/HPF) Urine Squamous Epithelial Cells Few /LPF (</=FEW) Urine Bacteria Negative /HPF (NONE-FEW) Urine Hyaline Casts Few /LPF (NONE-FEW) Urine Mucus Few /HPF (NONE-FEW) EKG/Imaging EKG Interpretation 12 lead EK 152 Rhythm: Sinus bradycardia, rate 53 bpm [place]: normal QRS: normal, no evidence of QT prolongation, corrected QT [address] segments: Nonspecific T wave abnormality, gross T-wave flattening diffusely ED Course/Re-evaluation Clinical Indication for ER IV: Hydration, IV Access ED Course Patient was admitted to an examination room. H&P was done. The differential diagnoses was considered. On clinical examination. Patient is very somnolent. He is hypotensive. Patient consumed alcohol and numerous pills. He admits to multiple Valium 5 mg. and hydrocodone. Patient had 2 peripheral IVs established. Aggressive saline hydration was initiated for his hypotension. Supportive therapy was administered. Patient had his airway protected and did not need to be intubated. He was placed on emergency fpc by police officers. Poison center was contacted. To assist with intermittent of his polypharmacy overdose. Patient alcohol ingestion and multiple depressants. Patient's only significant finding is hypotension. He is protecting his airway. Aggressive fluid resuscitation was initiated to maintain his pressure. Patient doesn't respond to aggressive fluid resuscitation Romazicon and Narcan may be administered. Patient's diagnostic studies returned with a blood alcohol of 221. Tylenol and salicylate are unremarkable. 04/01/2019 5:05:48 am case discussed with Dr. Salima Mccarthy hospitalist on- call, who accepts the patient for admission to ICU for monitoring of his overdose and tension. Decision to Disposition Date: Apr 01, 2019 Decision to Disposition Time: 02:25 Critical Care Time I spent a total of 90 minutes of critical care time in obtaining history, performing a physical exam, bedside monitoring of interventions, collecting and interpreting tests and discussion with consultants but not including time spent performing procedures. Date of Report: Apr 01, 2019 Examiner: Dr. Pablito Head Patient Detained By: Law Enforcement Date Patient Detained: Apr 01, 2019 Time Patient Detained: 01:35 Date [facility]ci Expires: Apr 04, 2019 Time Fci Expires: 01:35 Legal Status: Police Hold: No Legal Status: Relationship: Single Legal Status: Residence: [facility] Resident Assessment Data Provided By: Patient, Other Source Chief Complaint: Polypharmacy overdose, alcohol intoxication HPI/ROS: 28-year-old male who was expressing suicidal ideation. Patient asked his friends to purchase of firearms of the kid patient self off. 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 He was expressing climbing up and throwing himself off. Tonight he drank alcohol and took a polypharmacy overdose of pills. On arrival of EMS. He had numerous pills spread out on the counter and he consumed several Valium 5 mg and significant alcohol Diagnosis: Suicidal attempt by polypharmacy overdose and alcohol ingestion Risk Formulation: Patient was just admitted for an emergency fpc on March 28 for 24-48 hours and was discharged from the mental health unit. Patient shreyas, apparently was asking friends to purchase a firearm so that he could injure himself. He also took an overdose of Valium and alcohol plus potentially trazodone, Lamictal and hydrocodone. Patient denies suicidal ideation. When asked. He was text messaging messages to his friends. Please see his recent admission to [facility] for additional information. Current Dangerous Risk Assess: Current Suicide Ideation Current Risk Summary: Patient is very high risk. His emergency fpc be upheld. Past Dangerous Risk Assess: Suicide Ideation-last 6mo Depart Departure Latest Vital Signs Vital Signs Date Time Temp Pulse Resp B/P (MAP) Pulse Ox O2 Delivery O2 Flow Rate FiO2 04/01/19 05:20 67 18 101/50 (67) 95 04/01/19 01:55 98.7 Room Air Impression: Primary Impression: Overdose Additional Impressions: Alcohol intoxication Suicide attempt Depression with suicidal ideation Hypotension Condition: Improved Disposition: Admitted from ER Problem Qualifiers Primary Impression: Overdose Encounter type: initial encounter Injury intent: intentional self-harm Qualified Codes: T50.902A - Poisoning by unspecified drugs, medicaments and biological substances, intentional self-harm, initial encounter Additional Impressions: Alcohol intoxication Complication of substance-induced condition: uncomplicated Qualified Codes: F10.920 - Alcohol use, unspecified with intoxication, uncomplicated Hypotension Hypotension type: unspecified hypotension type Qualified Codes: I95.9 - Hypotension, unspecified PABLITO HEAD DO Apr 01, 2019 01:59
--- NOTE | 2019-04-01 02:14 | EKG ---
FACILITY: [facility] PATIENT NAME: PAPA STYLES : [id number] MR: [id number] V: [id number] EXAM DATE: ORDERING PHYSICIAN: PABLITO HEAD TECHNOLOGIST: ALEX Test Reason : OD Blood Pressure : / mmHG Vent. Rate : 053 BPM Atrial Rate : 053 BPM P-R Int : 194 ms QRS Dur : 112 ms QT Int : 424 ms P-R-T Axes : 062 095 032 degrees QTc Int : 397 ms Sinus bradycardia Nonspecific T wave abnormality Abnormal ECG Confirmed by JESUS MILLER ([id number]) on 04/01/2019 5:46:22 AM Referred By: Confirmed By:JESUS MILLER
[2019-04-01] MEDS ORDERED: FLUMAZENIL 0.1 MG/ML 5 ML VIAL IVP ONE ×5 (03:50→05:10)
--- NOTE | 2019-04-01 03:55 | RADIOLOGY IMAGING REPORT ---
FACILITY: [facility] PATIENT NAME: Kristofer Valdez : 1990 MR: [id number] V: [id number] EXAM DATE: ORDERING PHYSICIAN: PABLITO HEAD TECHNOLOGIST: Location: [facility] Patient: Kristofer Valdez : 1990 Visit/Account:[id number] Date of Sevice: 04/01/2019 LEFT WRIST: Indication: Pain. Technique: 3 views were obtained. Comparison: None available. Findings: There is no evidence of fracture, dislocation, or other acute deformity. There is uniform m ineralization of the skeletal structures. There is no evidence of joint space narrowing or osteophyte formation. No periarticular soft tissue abnormality is identified. IMPRESSION: Negative left wrist. Report Dictated By: Chuck Bautista MD at 04/01/2019 3:46 AM Report E-Signed By: Chuck Bautista MD at 04/01/2019 3:49 AM WSN:[id number]
[2019-04-01] MEDS ORDERED: predniSONE 20 MG TAB PO ONE (04:25)
[2019-04-01] MEDS ORDERED: NS(*) 0.9% 1000 ML BAG 1,000 ML IV PRN (06:02)
[2019-04-01] MEDS ORDERED: FLUSH 10 ML SYR IVP PRN (06:05)
--- NOTE | 2019-04-01 06:35 | History & Physical ---
History of Present Illness Chief Complaint Suicidal ideation, overdose. History of Present Illness The patient is a 28 year old male with previous history of depression, anxiety, alcohol use disorder and suicidal ideation who was recently on BHS overnight for suicidal ideation. The patient states that last evening he was feeling "bummed" and started drinking. Early this am, he took medications that he had at home including hydrocodone, Lamictal, trazodone and Valium. He was then texting his friends and asking them to bring him a gun. Jessica SHOEMAKER encountered the patient who appeared to be intoxicated and noticed several pills on his countertop. The patient was brought to [facility] ER for evaluation. History Home Meds Reported Medications Multivits, W-Fe,Other Min (THERA-M) 1 Each Tablet, 1 EACH PO QDAY 03/29/19 Trazodone Hcl (TRAZODONE HCL) 150 Mg Tablet, 50-150 MG PO QHS TAKE 50 - 150 MG (1/3 TO ONE) TABLET NEEDED FOR INSOMNIA ABOUT AN HOUR BEFORE YOU GO TO SLEEP. 03/29/19 Lamotrigine (LAMOTRIGINE) 150 Mg Tablet, 150 MG PO QAM 03/28/19 Discontinued Reported Medications Lamotrigine (LAMICTAL) 25 Mg Tablet, 25 MG PO 04/11/18 Allergies: Coded Allergies: No Known Drug Allergies (Unverified , 04/11/18) Patient History: FH: alcohol abuse GF FH: suicide Cousin Other Social/Family Hx The patient works at [email or web address]) and is single. He has a BS in [employer]. Hx Smoking: No Smoking Status: Never Smoker Exposure to Second Hand Smoke?: No Caffeine Intake: Coffee Caffeine/Cups Per Day: 3/day Hx Alcohol Use: Yes Hx Substance Use Disorder: No Social Drug Use: Never History of IV Drug Use: No Review of Systems All Systems Reviewed/Normal: Yes, Except as Noted Psychiatric: Depression, Anxiety Exam Vital Signs Vital Signs Date Time Temp Pulse Resp B/P (MAP) Pulse Ox O2 Delivery O2 Flow Rate FiO2 04/01/19 06:00 56 18 91/57 (68) 90 Room Air 04/01/19 05:50 98.2 General Appearance: Other (Somnolent) Neuro: No Gross deficits Eyes: PERRLA ENT: Other (Dry mouth) Cardiovascular: Regular Rate and Rhythm Respiratory: Clear to Auscultation Extremities: Warm, Perfused Integumentary: Skin Intact without Lesion / Mass Psych: Appropriate Mood & Affect Medical Decision Making Data Points Result Diagram: 04/01/19 0142 04/01/19141 Item Value Date Time Urine Color Yellow 04/01/19 031 Urine Clarity Clear 04/01/196 Urine pH 6.0 pH 04/01/19 0316 Urine Specific [place] 1.008 04/01/19 031 Urine Protein Negative mg/dL 04/01/19 031 Urine Glucose (UA) Negative mg/dL 04/01/19 031 Urine Ketones Negative mg/dL 04/01/19 031 Urine Blood Negative 04/01/19 031 Urine Nitrite Negative 04/01/19315 Urine Bilirubin Negative 04/01/19315 Urine Urobilinogen Negative mg/dL 04/01/19 031 Urine Leukocyte Esterase Negative 04/01/19 0316 Urine RBC <1 /HPF 04/01/19315 Urine WBC 1 /HPF 04/01/19 0316 Urine Squamous Epithelial Cells Few /LPF 04/01/19 0316 Urine Bacteria Negative /HPF 04/01/19 0316 Urine Hyaline Casts Few /LPF 04/01/19 0316 Urine Mucus Few /HPF 04/01/19 0316 Random Glucose 110 mg/dl 04/01/19 0142 Calcium Level 9.0 mg/dl 04/01/19 0142 Magnesium Level 2.6 mg/dl H 04/01/19 0142 Total Bilirubin 0.7 mg/dl 04/01/19 0142 Aspartate Amino Transf (AST/SGOT) 44 U/L H 04/01/19 0142 Alanine Aminotransferase (ALT/SGPT) 42 U/L 04/01/19 0142 Alkaline Phosphatase 68 U/L 04/01/19 0142 Total Protein 7.7 g/dl 04/01/19 0142 Albumin 4.7 g/dl 04/01/19 0142 Salicylates Level < 10 mg/L 04/01/19 014 Salicylate Last Dose Date unk 04/01/19 0142 Acetaminophen Level < 10 ug/ml 04/01/19 014 Serum Alcohol 221 mg/dl 04/01/19 014 Urine Opiates Screen Negative 04/01/19 0316 Urine Barbiturates Screen Negative 04/01/19315 Ur Tricyclic Antidepressants Screen Negative 04/01/19315 Urine Phencyclidine Screen Negative 04/01/19315 Urine Amphetamines Screen Positive 04/01/19315 Urine Benzodiazepines Screen Positive 04/01/19315 Urine Cocaine Screen Negative 04/01/19315 Urine Cannabinoids Screen Negative 04/01/19315 EKG / Imaging EKG Interpretation FACILITY: [facility] - [place], [place] PATIENT NAME: PAPA STYLES : [id number] MR: [id number] V: [id number] EXAM DATE: ORDERING PHYSICIAN: PABLITO HEAD TECHNOLOGIST: ALEX Test Reason : OD Blood Pressure : / mmHG Vent. Rate : 053 BPM Atrial Rate : 053 BPM P-R Int : 194 ms QRS Dur : 112 ms QT Int : 424 ms P-R-T Axes : 062 095 032 degrees QTc Int : 397 ms Sinus bradycardia Nonspecific T wave abnormality Abnormal ECG Confirmed by JESUS MILLER ([id number]) on 04/01/2019 5:46:22 AM Referred By: Confirmed By:JESUS MILLER 0148 T: BRENDAN/ Imaging FACILITY: [facility] - [place], [place] PATIENT NAME: Papa Styles : 1990 MR: [id number] V: [id number] EXAM DATE: ORDERING PHYSICIAN: PABLITO HEAD TECHNOLOGIST: Location: [facility] - [place] Patient: Papa Styles : 1990 Visit/Account:[id number] Date of Sevice: 04/01/2019 LEFT WRIST: Indication: Pain. Technique: 3 views were obtained. Comparison: None available. Findings: There is no evidence of fracture, dislocation, or other acute deformity. There is uniform mineralization of the skeletal structures. There is no evidence of joint space narrowing or osteophyte formation. No periarticular soft tissue abnormality is identified. IMPRESSION: Negative left wrist. Report Dictated By: Chuck aButista MD at 04/01/2019 3:46 AM Report E-Signed By: Chuck Bautista MD at 04/01/2019 3:49 AM [id number] Pre-Admit Course Medical Record Review: Yes Assessment and Plan Problems: (1) Overdose Status: Acute Assessment & Plan: The patient drank alcohol and took several medications as noted above. Poison control has recommended supportive care. Will repeat Tylenol level and EKG this am. Continue fluids. Monitor on telemetry in ICU. (2) Hypotension Status: Acute Assessment & Plan: Improving with IV fluids. Monitor in ICU. (3) Depression with suicidal ideation Status: Acute Assessment & Plan: The patient has had several visits to [facility] for suicidal ideation. He was on BHS on March 28. Will consult psychiatry. (4) Alcohol use disorder Status: Chronic Assessment & Plan: The patient is a daily drinker. He reports drinking 3 drinks most days and more on others. Time Spent on Plan of Care: < 30 min Venous Thromboembolism Antithrombotics Is Pt On Any Antithrombotics?: No Exam Sepsis Risk: No Definite Risk Problem Qualifiers (1) Overdose: Encounter type: initial encounter Injury intent: intentional self-harm Qualified Codes: T50.902A - Poisoning by unspecified drugs, medicaments and biological substances, intentional self-harm, initial encounter (2) Hypotension: Hypotension type: unspecified hypotension type Qualified Codes: I95.9 - Hypotension, unspecified JESUS MOONEY MD Apr 01, 2019 06:35
--- NOTE | 2019-04-01 06:49 | EKG ---
FACILITY: [facility] PATIENT NAME: PAPA STYLES : [id number] MR: [id number] V: [id number] EXAM DATE: ORDERING PHYSICIAN: JESUS MOONEY TECHNOLOGIST: AUBREE Alex Reason : RECHECK QT AFTER OD Blood Pressure : / mmHG Vent. Rate : 062 BPM Atrial Rate : 062 BPM P-R Int : 200 ms QRS Dur : 096 ms QT Int : 422 ms P-R-T Axes : 014 093 023 degrees QTc Int : 428 ms Sinus rhythm Borderline right axis Nonspecific T wave flattening Borderline ECG When compared with ECG of 01-APR-2019 01:48, No significant change was found Confirmed by AMANDA MOONEY ([id number]) on 04/01/2019 12:51:33 PM Referred By: Confirmed By:AMANDA MOONEY
--- NOTE | 2019-04-01 08:27 | Hospitalist Progress Note ---
Subjective Progress Notes Subjective Awake and alert. He reports "not feeling too great" - feeling depressed. No other complaints. Physical Exam Vital Signs Date Time Temp Pulse Resp B/P (MAP) Pulse Ox O2 Delivery O2 Flow Rate FiO2 04/01/19 07:30 95 Nasal Cannula 2.0 04/01/19 06:30 66 11 95/69 (78) 04/01/19 05:50 98.2 Intake and Output 04/01/19 07:02 Intake Total 6000 ml Output Total 625 ml Balance 5375 ml Intake IV Total 6000 ml Output Urine Total 625 ml General Appearance: Alert, Awake Cardiovascular: Regular Rate and Rhythm Respiratory: Clear to Auscultation (anteriorly) Result Diagram: 04/01/19 0142 04/01/19 0634 Assessment and Plan Problems: (1) Overdose Status: Acute Assessment & Plan: The patient drank alcohol and took several medications at fairly low dose. Poison control recommended supportive care. Repeat Tylenol level is negative. EKG is unremarkable with normal QT. Will continue to monitor on telemetry in ICU. He has remained fairly stable. He should be able to go to [facility] unit later today. Will discuss with Dr. Escoto. (2) Hypotension Status: Acute Assessment & Plan: He has had borderline low BPs in the past. Improved with IV fluids. Monitor in ICU. (3) Depression with suicidal ideation Status: Acute Assessment & Plan: The patient has had several visits to [facility] for suicidal ideation. He was on S unit recently (March 28). He was placed on an emergency hold in ER. Will discuss with psychiatry. (4) Alcohol use disorder Status: Chronic Assessment & Plan: The patient is a daily drinker. He reports drinking 3 drinks most days and more on others. Exam Sepsis Risk: No Definite Risk Problem Qualifiers (1) Overdose: Encounter type: initial encounter Injury intent: intentional self-harm Qualified Codes: T50.902A - Poisoning by unspecified drugs, medicaments and biological substances, intentional self-harm, initial encounter (2) Hypotension: Hypotension type: unspecified hypotension type Qualified Codes: I95.9 - Hypotension, unspecified AMANDA MOONEY MD Apr 01, 2019 08:27
--- NOTE | 2019-04-01 11:06 | Medical Nutrition Therapy ---
Nutrition Anthropometrics Height (Inches): 68.00 Height (Calculated Centimeters: 172.783555 Weight (Pounds): 149 Weight (Calculated Kilograms): 67.812 BMI: 22.7 Daljit Nutrition Score: Adequate Daljit Nutrition Risk Score: 17 Dietary Referral Nutrition Risk Factors: Nutrition Risk Comment: Physical Findings Physical Appearance: WNR Skin Appearance Skin Appearance: Edema Edema Location Modifier: Edema Location: Type of Edema: Degree of Edema: Gastrointestinal Symptoms GI Symtoms: Tube Present: Bowel Sounds: Recent Bowel Pattern: Stool Characteristics: Nutrition/Food History Poor (No intakes recorded yet.) Alcohol Use: Currently (According to H/P drinks 3 alcoholic beverages per day) Nutritional Diagnosis Nutritional Risk Acuity 3: Alcohol abuse Nutritional Acuity: 3-Mild Energy Requirement: 2186 (HBE) Protein Requirement: 68 (1g/kg) Fluid Requirement: 2186 (1mL/kcal) Nutrition Intervention: Teaching, Incr diet as tolerated, Vit/min support Diet Comment To RSA: ALLOW PT TO ORDER BOOST OR BENEPROTEIN NEEDED Nutrition Monitoring & Eval Nutrition Goals: Eat 75-100% Meal Nutrition Follow-Up: Poor Intake Nutrition Monitoring: Monitor intakes, Ask about wt hx, daily food intake at home, malnutrition physical assessment RD Patient Assessment Time: [address] Assessment Type: RD Assessment Patient Nutrition Acuity: 3-Mild Follow Up Date: Apr 05, 2019 Nutritional Comment: 04/01/19: Reviewed pt medical hx. Admit for overdose, hypotension. Recommend adding B-complex complex for ETOH induced depletion of B vitamins. Discussed with RN in ICU. Pt was sleeping will follow up with pt in S to provide nutrition education for sobriety if pt is interested.DICK SOUZA Apr 01, 2019 11:06
--- NOTE | 2019-04-01 13:07 | Hospitalist Depart ---
Discharge Summary Reason for Hosp/Final Diag: (1) Overdose Status: Acute Hospital Course & Plan: The patient drank alcohol and took several medications at fairly low dose. Poison control recommended supportive care. Repeat Tylenol level is negative. EKG is unremarkable with normal QT. He has remained fairly stable. He should be able to go to S unit today. I discussed this with the patient and he is agreeable. I also discussed the patient with with Dr. Escoto. (2) Hypotension Status: Acute Hospital Course & Plan: He has had borderline low BPs in the past. Improved with IV fluids. He has not had any symptoms. (3) Depression with suicidal ideation Status: Acute Hospital Course & Plan: The patient has had several visits to [facility] for suicidal ideation. He was on S unit recently (March 28). He was placed on an emergency hold in ER. He will be transferred to the [facility] for further evaluation with psychiatry. (4) Alcohol use disorder Status: Chronic Hospital Course & Plan: The patient is a daily drinker. He reports drinking 3 drinks most days and occasionally more on others. Departure Weight (Pounds): 149 Weight (Ounces): 8.0 Result Diagram: 04/01/19 0142 04/01/19 1227 Item Value Date Time Thyroid Stimulating Hormone (TSH) 1.02 uIU/ml 04/01/19141 Albumin 4.7 g/dl 04/01/19 014 Total Protein 7.7 g/dl 04/01/19 014 Alkaline Phosphatase 68 U/L 04/01/19141 Alanine Aminotransferase (ALT/SGPT) 42 U/L 04/01/19 014 Aspartate Amino Transf (AST/SGOT) 44 U/L H 04/01/19 014 Total Bilirubin 0.7 mg/dl 04/01/19 014 Magnesium Level 2.6 mg/dl H 04/01/19 014 Calcium Level 9.0 mg/dl 04/01/19141 Random Glucose 110 mg/dl 04/01/19141 Glomerular Filtration Rate Calc > 60.0 04/01/19141 Creatinine 0.60 mg/dl L 04/01/19141 Blood Urea Nitrogen 5 mg/dl L 04/01/19141 Carbon Dioxide Level 22 mmol/L 04/01/19141 Chloride Level 109 mmol/L H 04/01/19 0142 Potassium Level 3.9 mmol/L 04/01/19 0142 Sodium Level 147 mmol/L H 04/01/19 0142 Sodium Level 145 mmol/L 04/01/19 0634 Potassium Level 3.9 mmol/L 04/01/19 0634 Chloride Level 118 mmol/L H 04/01/19 0634 Carbon Dioxide Level 18 mmol/L L 04/01/19 0634 Blood Urea Nitrogen 3 mg/dl L 04/01/19 0634 Creatinine 0.50 mg/dl L 04/01/19 0634 Glomerular Filtration Rate Calc > 60.0 04/01/19 0634 Random Glucose 86 mg/dl 04/01/19 0634 Calcium Level 7.0 mg/dl *L 04/01/19 0634 Urine Mucus Few /HPF 04/01/19 0316 Urine Hyaline Casts Few /LPF 04/01/19 0316 Urine Bacteria Negative /HPF 04/01/19 0316 Urine Squamous Epithelial Cells Few /LPF 04/01/19 0316 Urine WBC 1 /HPF 04/01/19 0316 Urine RBC <1 /HPF 04/01/19 0316 Urine Leukocyte Esterase Negative 04/01/19 0316 Urine Urobilinogen Negative mg/dL 04/01/19 0316 Urine Bilirubin Negative 04/01/19 0316 Urine Nitrite Negative 04/01/19 0316 Urine Blood Negative 04/01/19 0316 Urine Ketones Negative mg/dL 04/01/19 0316 Urine Glucose (UA) Negative mg/dL 04/01/19 0316 Urine Protein Negative mg/dL 04/01/19 0316 Urine Specific [place] 1.008 04/01/19 0316 Urine pH 6.0 pH 04/01/19 0316 Urine Clarity Clear 04/01/19 0316 Urine Color Yellow 04/01/19 0316 Acetaminophen Level < 10 ug/ml 04/01/19 0634 Urine Cannabinoids Screen Negative 04/01/19 0316 Urine Cocaine Screen Negative 04/01/19 0316 Urine Benzodiazepines Screen Positive 04/01/19 0316 Urine Amphetamines Screen Positive 04/01/19 0316 Urine Phencyclidine Screen Negative 04/01/19 0316 Ur Tricyclic Antidepressants Screen Negative 04/01/19 0316 Urine Barbiturates Screen Negative 04/01/19 0316 Urine Opiates Screen Negative 04/01/19 0316 Salicylates Level < 10 mg/L 04/01/19141 Acetaminophen Level < 10 ug/ml 04/01/19141 Serum Alcohol 221 mg/dl 04/01/19141 Condition: Improved Discharge: [facility] Time Spent: > 30 min Discharge Instructions Home Meds Reported Medications Multivits,Th W-Fe,Other Min (THERA-M) 1 Each Tablet, 1 EACH PO QDAY 03/29/19 Lamotrigine (LAMOTRIGINE) 150 Mg Tablet, 150 MG PO QAM 03/28/19 Discontinued Reported Medications Trazodone Hcl (TRAZODONE HCL) 150 Mg Tablet, 50-150 MG PO QHS TAKE 50 - 150 MG (1/3 TO ONE) TABLET NEEDED FOR INSOMNIA ABOUT AN HOUR BEFORE YOU GO TO SLEEP. 03/29/19 Lamotrigine (LAMICTAL) 25 Mg Tablet, 25 MG PO 04/11/18 Diet: Regular Activity: As Tolerated Venous Thromboembolism Antithrombotics Is Pt On Any Antithrombotics?: No Problem Qualifiers (1) Overdose: Encounter type: initial encounter Injury intent: intentional self-harm Qualified Codes: T50.902A - Poisoning by unspecified drugs, medicaments and biological substances, intentional self-harm, initial encounter (2) Hypotension: Hypotension type: unspecified hypotension type Qualified Codes: I95.9 - Hypotension, unspecified AMANDA MOONEY MD Apr 01, 2019 13:07
[2019-04-01] MEDS ORDERED: TRAZ150T8 PO (15:45)
== END 2019-04-01 13:02 ==
LOC: ER 01:49 → INTOOBSV 05:23 → ICU 05:23
PROVIDERS: ADMIT Internal Medicine; ATTEND Internal Medicine
DX: T50.902A Poisoning by unspecified drugs, medicaments and biological substances, intentional self-harm, initial encounter (principal); R00.1 Bradycardia, unspecified
CPT/HCPCS: 36415; 73110; 80305; 80320; 80329; 81001; 83735; 84443; 85025; 93005; 96361; 96374; 99291; G0378; J3490; J7030; 82040; 82247; 82310; 82374; 82435; 82565; 82947; 84075; 84132; 84155; 84295; 84450; 84460; 84520; 96360; 99292

== ENCOUNTER 2019-04-01 15:23 | Inpatient (IN) | payer SELFPAY ==
[~2019-04-01] VITALS: Ht 170.2 cm; Wt 62.1 kg
[2019-04-01 15:28] VITALS: BP 110/71
[2019-04-01] MEDS ORDERED: TRAZ150T8 PO (15:45)
--- NOTE | 2019-04-01 16:52 | BHS - Psychiatric Evaluation ---
ER - Title 25 MHE Evaluation Title 25 Evaluation Patient Detained By: Law Enforcement Referral Source: Professional: Law Enforcement Date Patient Detained: Apr 01, 2019 Time Patient Detained: 01:35 Date Long Term Expires: Apr 04, 2019 Time Long Term Expires: :35 Legal Status: Police Hold: No Legal Status: Residence: [facility] Resident, State Resident, Student Assessment Data Provided By: Patient, Other Source ([facility] clinical staff) HPI/ROS: Per Dr. Escalante, ER physician, "28-year-old male brought in by EMS after being encountered by police. Patient appears grossly intoxicated. He admits to taking several pills. He has access to Valium 5 mg, lamotrigine, trazodone, hydrocodone. Patient had a smorgasbord of pills spread out on the counter. His unclear what he's taken. He is hypotensive on arrival. EMS established a peripheral IV. Patient responds to painful stimuli. He wakes up and answers questions appropriately with stimulation. He is quite somnolent. Patient's history is significant for recent emergency [facility] and admission to [facility] on 03/28/19. He was discharged on March 29 from [facility]." Admit due to SI or Attempt: Yes Suicide Plan: No Plan Alcohol or Drugs Involved: Yes Is Patient Info Reliable: Yes (Patient likely minimizing his experiences related to suicidal impulses evidenced by two [id number] detentions 03/28/2019 and 04/01/2019) Is Collateral Info Reliable: Yes (Electronic Medical record) Mental Status Exam General Appearance: Casual, Well Groomed, Good Eye Contact, Cooperative, Polite, Good Interaction Speech: Clear Mood: Dysthmic/Depressed Affect: Calm Thought Process: Organized Thought Content: Suicidal Ideation (Denies) Cognition: Alert & Oriented-Person, Alert & Oriented-Place, Alert & Oriented- Time; No Gsbdc-Pcwbrzyt-Gftlwwvru Memory: Immediate Insight Judgment: Poor Sleep: Normal (Somnolent) Hallucinations: Denies Delusions: Denies Current Risk & History Current Dangerous Risk Assessm: Current Suicide Ideation (Denies) Past Dangerous Risk Assessm: Suicide Ideation-last 6mo (Patient treated here earlier this week for similar presentation) Prior Alcohol/Drug Abuse Reports he has been drinking heavily for the last week. Previous Suicide Attempt: Past - Low Lethality Number of Attempts/Description Last [facility] hospitalization, earlier in the week, patient also tried to use pills in an intentional overdose. Previous Psychiatric Illness: Yes Previous Psychiatric Treatment: Yes (Alcohol Use disorder with suicide attempts) Risk Assessment & Disposition Evaluated Risk Assessment: Risk is quite high. Patient reports drinking alcohol heavily and feeling suicidal. During this serious occasions, he has harmed himself with an intentional overdose. This admission however required treatment in the ICU. Impression: Primary Impression: Alcohol intoxication Additional Impressions: Alcohol use disorder Depression with suicidal ideation Overdose Suicide attempt Meets Mental Illness Req.: Yes Meets Dangerousness Req.: Yes Emergency Long Term to be: Upheld Decision Comment: Risk is quite high. Patient reports drinking alcohol heavily and feeling suicidal. During this serious occasions, he has harmed himself with an intentional overdose. This admission however required treatment in the ICU. Patient seems to have not resolved the problems that he experienced on the admission prior to this one. He needs a safe and stabilizing environment. Date of Decision: Apr 01, 2019 Time of Decision: 16:58 Patient is Medically Stable at: Yes Disposition: [facility] (transferred to [facility] from ICU) Problem Qualifiers ARON HO LPC Apr 01, 2019 16:52
[2019-04-01 19:20] VITALS: BP 102/70
[2019-04-02 02:51] VITALS: BP 101/72
[2019-04-02 08:50] VITALS: BP 121/78
[2019-04-02] MEDS: FLUoxetine HCL 20 MG CAP PO SCH (08:54)
[2019-04-02] MEDS: lamoTRIgine 100 MG TAB PO SCH (08:54)
[2019-04-02 20:54] VITALS: BP 122/76
[2019-04-02] MEDS ORDERED: traZODone HCL 50 MG TAB PO SCH (21:00)
[2019-04-03 05:48] VITALS: BP 106/70
[2019-04-03] MEDS: FLUoxetine HCL 20 MG CAP PO SCH (08:32)
[2019-04-03] MEDS: lamoTRIgine 100 MG TAB PO SCH (08:32)
[2019-04-03] MEDS ORDERED: FLUO-202 PO (10:41)
--- NOTE | 2019-04-03 12:13 | SCHAAF H&P ---
DATE OF ADMISSION: April 01, 2019 ATTENDING PHYSICIAN Pedro Escoto MD Patient was seen at approximately 0800 hours on the morning of April 02, 2019 for note concerning this dictation. PRESENTING PROBLEM/CHIEF COMPLAINT Suicidal ideation and status post overdose and alcohol intoxication. HISTORY OF PRESENT ILLNESS This is very pleasant 28-year-old male who was notably last on the Unit under very similar conditions from March 28, 2019 to March 29, 2019. Patient presenting at that time intoxicated with alcohol and having increasing depressing thoughts and suicidal ideation in relation to intoxication and the rejections of a romantic focus. Patient at that time was noted to be very pleasant on the Unit, interacting well. Appeared to be an accurate and very honest historian and agreed to outpatient care. Patient was discharged, notably returning to the emergency room on April 01, 2019 after a mild overdose of some of his psychiatric medications including Lamictal and Trazodone as well as Valium that was previously prescribed by an outpatient provider. Patient also intoxicated on alcohol. Patient was initially placed on the Intensive Care Unit for monitoring of overdose. Patient was cleared and transferred to Behavioral Health Unit, where patient remains under emergency detainment. Upon interview, patient again very pleasant and cooperative, stating that he was doing fine and he does fine most mornings. Patient again appearing to be an accurate and honest historian, very cooperative with this provider. Patient reports that his depressive concerns seem to come on stronger at night, where patient then relapsed into drinking, which worsened his condition. Patient again then feeling very badly over the rejections of a romantic focus again. Patient alerting friends to problems with suicidal ideation and potential overdose. Police contacted, brought patient in under emergency detainment. Patient again appears to indicate that the use of substances on top of stressors about his future and problems and social situations with friends recently gets the best of him at times. He has in the past reported some social anxiety and over-thinking in social situations and likely patient was known to have some avoidant type personality traits. His depressive symptoms include that his appetite has been okay as per patient report. His energy is variable. Concentration is okay. Continues to have interest in outdoor activities. Sleep is variable at times and his mood quickly improves in the absence of alcohol, although underlying stressors and social situations remain. Patient now denying any suicidal thoughts. He may have had some cyclic type mood behaviors in the past and he reported on recent admission that Lamictal he believes is helpful and he does state that he normally takes this as prescribed. Patient notably was prescribed Valium in low dose through [facility]. Patient has been instructed to not use Valium and dispose of this as he continues to becker alcoholism. Patient has panic-like attack symptoms at times but these do not seem to meet criteria for panic disorder at this time. He has reported no PTSD symptoms, phobia, no OCD symptoms. Patient has been engaging in mild superficial cutting from time to time as he reports this started around age 24 or 25 and he reports this as stress relief. MENTAL HEALTH HISTORY Patient has one prior admission, notably in this month from March 28 to , where patient was an inpatient here at [facility]. During this period, patient interacted very well and seemed to work well with this provider and other treatment team staff for successful outpatient treatment goals. Patient had been following up at [facility]. Patient reports on last admission he would be open to seeing a therapist as well and we will encourage patient to seek long-term healthcare from psychiatric provider. During last admission, patient's Lamictal was increased to 150 mg q.a.m. and Trazodone was given at night for sleep. Patient reported in the past that he had thought about suicide strongly and had brought a firearm on one occasion in the remote past but did not seek any inpatient treatment at that time. Patient has not been able to followup with outpatient appointment since previous brief admission. FAMILY PSYCHIATRIC HISTORY The patient reports some alcohol consumption in the family. Grandfather on his father's side suffered from alcoholism and he had a distant cousin who is known to have taken his life. PAST MEDICAL HISTORY The patient reports some mild asthma symptoms at times in his life and he has mostly outgrown them. Other than that, patient reports good health with no known drug allergies. SOCIAL HISTORY The patient was born in [place] and raised there. Parents were at the time of his . They remain together. Patient has two brothers. He is a high school graduate. He obtained a Bachelor of Science degree in [employer]. He has never been in the . Not , has no children and not engaged in a relationship with his significant other at this point, although he certainly is able to identify a current romantic focus that is no reciprocal. Patient is heterosexual. 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 It is unknown if patient will be able to continue his work there due to his drinking. Patient does report long-term goals. He would like to get into more of a [employer] type employment with a focus on research. LEGAL HISTORY Patient has one DUI in the past. SUBSTANCE ABUSE HISTORY Patient chews tobacco occasionally and alcohol now appears to have a very significant role in decompensating mood. PHYSICAL EXAMINATION Please see emergency room note. Notable for cooperative 28-year old male. Vital signs at the time of admission: Temperature 98.7, pulse 59, respiratory rate 20, blood pressure 83/57 with pulse oximetry of 90% on room air. LABORATORY DATA CBC on April 01, 2019 was unremarkable in nature. Chemistry panel on April 01, 2019 was also overall unremarkable. Urinalysis unremarkable. Toxicology screen positive for amphetamines. This is likely a false positive. Positive for benzodiazepines. This likely indicates the use of Valium in his half-life. Serum alcohol level of 221 upon admission. MENTAL STATUS EXAMINATION GENERAL APPEARANCE, BEHAVIOR AND ATTITUDE: Very polite and cooperative 28-year old male, well-groomed, asking "when I can go home". No gross psychomotor retardation or activation. Any overdose the patient may have had regarding outpatient medication seems overall insignificant. SPEECH: Within normal limits. Regular rate, rhythm, volume and tone. MOOD: Described as improving. AFFECT: Overall mood-congruent. Patient again notably appears to be an accurate and honest historian overall. THOUGHT PROCESSES: Appear goal-directed, logical. No loose associations or flight of ideas were detected. THOUGHT CONTENT: Free of auditory or visual hallucinations, ideas of reference, thought broadcastings, delusions, obsessions or compulsions. The patient now denying any further suicidal thoughts and states that he believes this was a product of social stressors combined with alcohol intoxication. Patient denying homicidal ideation. SENSORIUM: Clear. COGNITION: Alert and oriented to person, place, time and situation. MEMORY: Immediate, recent and remote estimated intact. INTELLIGENCE: Average, based on interview. INSIGHT AND JUDGMENT: Considered grossly intact in the absence of alcohol use. ASSESSMENT This is a very pleasant 28-year-old male who was recently on the Unit under very similar circumstances. 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 Patient also may have some underlying anxiety and persistent depressive disorder type symptoms. Patient certainly suffering from alcohol use disorder and he indicated an understanding on prior admission to avoid alcohol. However, patient was unable to do so. The events that led patient to be admitted again and the first time to this Behavioral Health Unit appear to be likely brought on by substance-induced mood disorder concerning alcohol. We will continue to monitor for alcohol withdrawal and we will once again educate the patient on the hazards of alcohol use in the light of social stressors and with what now appears to be an underlying significant alcohol use disorder. We will also continue current medications and, again, work for outpatient goals with continued abstinence with close followup with outpatient providers. DIAGNOSES 1. Alcohol intoxication. 2. Alcohol use disorder, moderate to severe. 3. 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 4. Persisting depressive disorder. 5. Rule out cyclothymia and cluster C personality traits. 6. Ongoing social stressors. PLAN 1. Admit to the unit. 2. Necessary precautions will be implemented. 3. The patient will participate in individual and group therapy. 4. Medications will be administered and titrated accordingly. We will start Prozac at this time and resume treatment with Lamictal and Trazodone. 5. We will continue to work with patient under an emergency detainment at this time to set up effective outpatient treatment. 6. Estimated length of stay e to 5 days. 7. We will also explore the need of a first hearing to extend detainment at this time. BOGDAN
[2019-04-03 12:22] VITALS: BP 120/78
--- NOTE | 2019-04-05 21:37 | SCHAAF DISCHARGE ---
DATE OF ADMISSION: April 01, 2019 DATE OF DISCHARGE: April 03, 2019 ATTENDING PHYSICIAN Pedro Escoto MD Patient was seen approximately 1000 hours on 03 April 2019 for note concerning this dictation. FINAL DIAGNOSES 1. Alcohol use disorder, severe. 2. Alcohol-induced mood disorder, resolved. 3. Alcohol withdrawal not clinically apparent. 4. Persisting depressive disorder. 5. Ongoing social stressors. REASON FOR ADMISSION This is a very pleasant 28-year-old male who certainly presents on the Behavioral Health Unit as an accurate historian. Patient most notably on the Behavioral Health Unit from March 28 to March 29 (please see electronic record for further details) under very similar circumstances. Patient admitted after intoxication with suicidal ideation. Patient then, unfortunately, returned to the Emergency Room after discharge on April 01, 2019, for a mild overdose on a few doses of his medications including Lamictal and trazodone. Patient was seen initially in ICU for observation. Patient then brought to Behavioral Health Unit for further evaluation. Upon arrival on Behavioral Health Unit, patient again appearing to be a very accurate historian, very cooperative, taking an active role in his treatment. Patient verbalizing that he recognizes his mood quickly decompensates in the face of recognizable social stressors on top of alcohol consumption. Patient quickly denying any further suicidal ideation, and patient working well with this provider and treatment team staff to once again set up supportive outpatient care. Alcohol withdrawal was not notably clinically relevant. Patient apparently was able to retain his job, which he enjoys. Patient has notably been in contact with the unit since his discharge at the time of this dictation and continues to do well. PHYSICAL EXAMINATION Please see emergency room note and ICU notes. GENERAL: Healthy 28-year-old male overall, intoxicated at time of arrival, but awake and cooperative. VITAL SIGNS: Initial vital signs showed temperature 98.7, pulse 59, respiratory rate 20, blood pressure 83/57, and pulse oximetry 90% on room air. At time of discharge from Behavioral Health Unit, vital signs showed temperature 99.8, pulse 64, respiratory rate 15, blood pressure 120/78, and pulse oximetry 97% on room air. LABORATORY DATA CBC upon arrival was unremarkable. CMP on 04/01/2019 overall unremarkable as well with normal hepatic function. Toxicology screen upon arrival is positive for amphetamines. Patient adamantly denying the known use of amphetamines, and patient again appears to be a very believable and accurate historian. This is likely a false positive in the opinion of this provider. Patient is positive for benzodiazepines upon admission, which were either given in the ER or remain positive from previous dosing of Valium on a previous visit for alcohol withdrawal, or patient is known to have a small script of low-dose benzodiazepines at home which he was told to dispose of as of previous admission, but may have taken to excess in mild overdose prior to this admission. Serum alcohol level of 221 upon admission. Urinalysis unremarkable. MENTAL STATUS EXAMINATION AT TIME OF DISCHARGE GENERAL APPEARANCE, BEHAVIOR, AND ATTITUDE: This is a pleasant 28-year-old male, interacting very well with this provider and staying in contact with this provider after discharge. Patient interacting with other staff members as well. No periods of tearfulness. No bizarre mannerisms or tics. Making good eye contact. SPEECH: Within normal limits. Regular rate, rhythm, volume, and tone. MOOD: Considered good. AFFECT: Full and mood congruent. THOUGHT PROCESSES: Goal directed, logical. No loose associations or flight of ideas. THOUGHT CONTENT: Free of auditory or visual hallucinations, ideas of reference, thought broadcasting, delusions, obsessions, compulsions. Negative for any suicidal or homicidal ideation while on the Behavioral Health Unit, and no parasuicidal behaviors were observed. SENSORIUM: Clear. COGNITION: Alert and oriented to person, place, time, and situation. MEMORY: Immediate, recent, and remote estimated intact. INTELLIGENCE: Average based on interview. INSIGHT AND JUDGMENT: Considered grossly intact in the absence of substance use. RESULTS OF TESTING Imaging: None. Laboratory data: See above. CONSULTATIONS None. TREATMENT Patient received medications, participated in individual and group therapy. HOSPITAL COURSE After sustaining mild overdose of multiple medications, patient was agreeable to restarting medications and contracted for continued consumption of medications as prescribed on an outpatient basis. Patient again showing no parasuicidal behaviors on the unit. Patient understanding that substance-induced mood disorder is a likely large concern in this patient, who does suffer from alcohol use disorder. Patient agreed to abstain from alcohol on an outpatient basis and abstain from many other illicit substances. Very cooperative throughout his stay. CONDITION OF PATIENT ON DISCHARGE Stable. Considered a minimal risk to himself or others in the absence of alcohol or other substance use. DISPOSITION Patient was discharged to home. He would followup with [facility], abstain from alcohol and illicit substances. Patient was encouraged to attend AA and obtain a sponsor and take medications as prescribed. DISCHARGE MEDICATIONS 1. Trazodone 50 to 150 mg p.r.n. at bedtime for insomnia. 2. Multivitamin with minerals daily. 3. Lamictal 150 mg every morning. 4. Patient also was started on Prozac while on the unit with good results, and 20 mg daily was the outpatient dose. PLAN Patient's medications were brought in including the remainder of low-dose diazepam and some hydrocodone patient had had from a previous injury. Patient allowed the pharmacy to dispose of these medications while on inpatient status. Crisis line was given should symptoms returned. Risks, benefits, and alternatives of the above discharge plan were discussed. Informed consent was given to proceed with above discharge plan by this competent patient. BOGDAN
== END 2019-04-03 16:32 | disposition home or self-care (01) | DRG 897 ==
LOC: BHS 15:23
PROVIDERS: ADMIT Psychiatry & Neurology Psychiatry; ATTEND Psychiatry & Neurology Psychiatry
DX: F10.24 Alcohol dependence with alcohol-induced mood disorder (principal); F34.1 Dysthymic disorder; Z63.8 Other specified problems related to primary support group; T42.6X2D Poisoning by other antiepileptic and sedative-hypnotic drugs, intentional self-harm, subsequent encounter; T43.212D Poisoning by selective serotonin and norepinephrine reuptake inhibitors, intentional self-harm, subsequent encounter